=== PATIENT | female | born 1955 | race Caucasian/White ===

== ENCOUNTER 2024-06-09 07:37 | Day surgery (SDC) | payer BC ==
[~2024-06-09 07:37] MED LIST: LIDOCAINE 1% (10MG/ML) FOR IV START INTRADERMA PRN; Pre Op ABX Message 1 EACH MISC MISCELLANE ONE
[2024-06-09] MEDS: LACTATED RINGERS 1,000 ML IV SCH (08:10)
[2024-06-09] MEDS: IV FLUID CONTINUATION 1,000 ML IV ONE (08:10)
[2024-06-09] MEDS: ONDANSETRON 4 MG/2 ML VIAL IVP ONE (08:12)
[2024-06-09] MEDS: MIDAZOLAM 2 MG/2 ML VIAL IV ONE (08:14)
[2024-06-09] MEDS: MIDAZOLAM 2 MG/2 ML VIAL IVP ONE ×2 (08:14)
[2024-06-09] MEDS ORDERED: ceFAZolin 1 GM/50 ML BAG (PMX) ONE (08:56)
[2024-06-09] MEDS ORDERED: LIDOCAINE 1% INJ 10MG/ML (20 ML MDV) ONE (08:56)
[2024-06-09] MEDS ORDERED: fentaNYL (PF) 50 MCG/ML 2 ML AMP ONE (08:56)
[2024-06-09] MEDS ORDERED: MIDAZOLAM 2 MG/2 ML VIAL ONE (08:56)
[2024-06-09] MEDS ORDERED: PROPOFOL 10 MG/ML 20 ML VIAL IV ONE (08:56)
[2024-06-09] MEDS: HEPARIN SODIUM,PORCINE 100 UNIT/ML 5 ML VIAL IV ONE (09:21)
[2024-06-09] MEDS: BUPIVACAINE (PF) 0.25% 30 ML VIAL SQ ONE ×2 (09:22)
[2024-06-09] MEDS: SODIUM CHLORIDE 0.9% 100 ML with ceFAZolin 2,000 MG IV ONE (09:28)
[2024-06-09] MEDS: SODIUM CHLORIDE 0.9% 100 ML IV ONE (09:28)
[2024-06-09 10:17] VITALS: TEMP 97
--- NOTE | 2024-06-09 10:17 | P.OP ---
Date of Procedure: 06/09/24 Preoperative Diagnosis: Colon cancer with metastasis Postoperative Diagnosis: Colon cancer with metastasis Procedure(s) Performed: Mediport placement with fluoroscopic guidance Anesthesia: MAC Surgeon: Bhavesh Dalton Pathology: none sent Condition: stable Disposition: same day Indications for Procedure: 68-year-old female presents today for Mediport placement. She has recent diagnosis of colon cancer with metastasis and recommendation was made after consultation with oncology for chemotherapy induction. Risks, benefits and alternatives were provided. All questions answered. Operative Findings: Appropriate flush and withdrawal from Mediport site Description of Procedure: Patient was brought to the operating suite and placed in supine position on the operating table. Sedation was provided by anesthesia and patient underwent LMA placement. She was then prepped and draped in regular sterile fashion. Right subclavian vein was accessed with first attempt using introducer needle and nonpulsatile dark blood was noted. Guidewire was placed and confirmation of location was noted on fluoroscopy. Incision was made to create the anticipated pocket for the Mediport site. Dissection was carried towards the prepectoralis fascia and this area was dissected for port placement. Dilator sheath was then placed over the guidewire and this was done under fluoroscopic guidance. Catheter was placed and noted to be in appropriate position and then attached to the Mediport site. This was locked into place. Appropriate flush and withdrawal was noted with injectable saline. The port was then adhered to the prepectoralis fascia using 3-0 Prolene suture. Additional image was taken to confirm no kinks of the catheter. Heparin lock was placed. Wound was then closed with 3-0 and 4-0 subcuticular Vicryl suture. Sterile dressing was appli ed. The patient was taken to the postanesthesia care unit in stable condition with anticipated chest x-ray.
--- NOTE | 2024-06-09 10:39 | FL ---
EXAMINATION TYPE: FL guided central line placement DATE OF EXAM: 06/09/2024 FLUOROSCOPY 42 SEC [place] .[id number] DAP DOSE Fluoroscopy during Port-A-Cath placement. There are 2 images provided. [facility], , 06/09/2024 10:36 AM
[2024-06-09 11:02] VITALS: RESP 16
[2024-06-09] MEDS: HYDROmorphone 0.5 MG/0.5 ML SYRINGE IVP PRN (11:08)
--- NOTE | 2024-06-09 11:23 | XR ---
EXAMINATION TYPE: XR chest 1V confirm line [facility] DATE OF EXAM: 06/09/2024 COMPARISON: NONE CLINICAL INDICATION: Female, 68 years old with history of Mediport Placement; TECHNIQUE: Single frontal view of the chest is obtained. FINDINGS: Heart normal size. Aorta and pulmonary vasculature within normal limits. Right anterior ch est wall injection port with subclavian access and catheter tip at the mid SVC. Heart normal size. Mo derate vasculature and aorta within normal limits. There is some patchy retrocardiac opacity noted. IMPRESSION: 1. Right anterior chest wall injection port with catheter tip at the mid SVC. 2. Some mild patchy atelectasis versus early infiltrate in the retrocardiac region. [facility], , 06/09/2024 11:20 AM
[2024-06-09] MEDS: HYDROcodone/APAP 5-325MG 1 EACH TAB PO STA (11:41)
[2024-06-09 11:59] VITALS: BP 117/69; PULSE 66
== END 2024-06-09 12:24 | disposition home or self-care (01) ==
LOC: OR 07:37
PROVIDERS: ATTEND Surgery
DX: C18.2 Malignant neoplasm of ascending colon (principal); E78.5 Hyperlipidemia, unspecified; F32.A Depression, unspecified; Z79.899 Other long term (current) drug therapy; Z90.49 Acquired absence of other specified parts of digestive tract; Z80.8 Family history of malignant neoplasm of other organs or systems
CPT/HCPCS: 77001; 36561; C1788; J2250; J1642; J2405; J0690 ×2; J2003; J3010; J2704; J1171; J0665